=== PATIENT | female | born 1980 | race Caucasian/White ===

== ENCOUNTER 2021-04-01 11:54 | Outpatient (CLI) | payer OTHER, SELFPAY ==
--- NOTE | ~2021-04-01 | XR_ITS ---
XR hand LT min 3V 04/01/2021 12:12 Indication: Left fourth finger pain after injury Procedure: 3 views left hand Comparison: No prior studies for comparison. Findings: There is a comminuted displaced, angulated extra-articular fracture of the left fourth prox imal phalanx. Mild soft tissue swelling. No significant periosteal reaction or callus formation. Impression: 1: Comminuted displaced, angulated extra-articular fracture left fourth proximal phalanx. Reviewed, dictated and finalized at location B. [employer] Impression: 1: Comminuted displaced, angulated extra-articular fracture left fourth proxima l phalanx.
== END 2021-04-01 11:55 | disposition home or self-care (01) ==
LOC: CHSIMG 11:58
PROVIDERS: PCP Family Medicine; Visit Provider Nurse Practitioner
DX: M79.642 Pain in left hand (principal); S62.605A Fracture of unspecified phalanx of left ring finger, initial encounter for closed fracture
CPT/HCPCS: 73130